=== PATIENT | female | born 1930 | race Caucasian/White ===

== ENCOUNTER 2017-11-06 13:19 | Emergency (ER) | payer MEDICARE, BC ==
[2017-11-06 14:03] LABS: ABS Basophils 0.1 10^3/ul (0-0.2); ABS Eosinophils 0.1 10^3/ul (0-0.6); ABS Lymphocytes 1.3 10^3/ul (1.0-4.8); ABS Monocytes 0.6 10^3/ul (0-0.8); ABS Neutrophils 4.9 10^3/ul (1.5-7.7); ABS Nucleated RBC 0 10^3/ul; Eosinophil % 0.7 % (0-6); Hematocrit 34 % (35-47); Hemoglobin 11.4 g/dl (12.0-16.0); Lymphocyte % 18.8 % (25-47); Mean Corpuscular HGB Conc 34 g/dl (31-36); Mean Corpuscular Hemoglobin 32 pg (27-31); Mean Corpuscular Volume 95 fL (80-97); Mean Platelet Volume 7.2 um3 (7.4-10.4); Nucleated Red Blood Cells % 0; Platelet Count 264 10^3/ul (150-450); Red Blood Count 3.56 10^6/ul (4.0-5.4); Red Cell Distribution Width 14 % (10.5-15)
[2017-11-06 14:04] LABS: Urine Appearance Clear; Urine Blood Negative (Negative); Urine Color Yellow; Urine Ketones Negative (Negative); Urine Protein Negative (Negative); Urine Specific Gravity 1.019 (1.010-1.030); Urine Urobilinogen Negative (Negative)
[2017-11-06 14:26] LABS: EGFR Non-African American 56.2 (>60)
--- NOTE | 2017-11-06 14:43 | RAD ---
Indication: Fall, head injury CT of the brain was performed without IV contrast. Ventricular structures are midline. No midline shift is noted. There is central and cortical atrophy noted. There is no evidence of intracranial mass or hemorrhage. No other high or low density lesions are identified. Periventricular lucency consistent with chronic ischemic White matter change is noted. Overall exam is unchanged from December 23, 2006. IMPRESSION: Chronic ischemic White matter change with no evidence of intracranial mass or hemorrhage.
--- NOTE | 2017-11-06 14:48 | RAD ---
HISTORY: Fall, head trauma COMPARISONS: None TECHNIQUE: Multiple contiguous axial CT scans were obtained of the cervical spine without intravenous contrast, with coronal and sagittal multiplanar reformations. FINDINGS: BRAIN: The visualized brain is unremarkable CENTRAL CANAL: Evaluation of the central canal is limited on CT technique; however, there is no obvious canalicular mass or epidural hemorrhage. ALIGNMENT: There is straightening of the cervical lordosis. VERTEBRAL BODIES: There is multilevel anterolateral marginal osteophyte formation. There is no displaced fracture. JOINTS: There is osteoarthritis of the uncovertebral and facet joints. MUSCULATURE: Unremarkable INTERVERTEBRAL DISCS: There is diffuse loss of intervertebral disc height. AXIAL IMAGES: On axial images, there is mild to moderate bilateral neural foraminal narrowing at C4-C5, C5-C6, and C6-C7. There is no osseous central canal stenosis. SOFT TISSUES: The visualized soft tissues of the neck are unremarkable. The prevertebral fat stripe is preserved. OTHER: None. IMPRESSION: DEGENERATIVE DISC DISEASE AND OSTEOARTHRITIS. NO ACUTE OSSEOUS INJURY TO THE CERVICAL SPINE.
--- NOTE | 2017-11-06 15:25 | RAD ---
HISTORY: Fall COMPARISONS: None VIEWS: 2: Frontal and lateral views of the chest. FINDINGS: CARDIOMEDIASTINAL SILHOUETTE: The cardiomediastinal silhouette is normal. EULALIA: The eulalia are normal. PLEURA: The costophrenic angles are sharp. No pleural abnormalities are noted. LUNG PARENCHYMA: The lungs are clear. ABDOMEN: The upper abdomen is clear. There is no subphrenic gas. BONES AND SOFT TISSUES: There is diffuse osteopenia. Mild degenerative changes are noted. OTHER: None. IMPRESSION: NO ACTIVE CARDIOPULMONARY DISEASE.
--- NOTE | 2017-11-06 15:26 | RAD ---
HISTORY: Fall, chronic low back pain COMPARISONS: April 21, 2017 VIEWS: 4, Frontal view of the pelvis with frontal and frog-leg views of the right hip FINDINGS: BONE DENSITY: There is diffuse osteopenia. BONES: There is no displaced fracture. JOINTS: There is mild osteoarthritis of the hips and SI joints. ALIGNMENT: There is no dislocation. SOFT TISSUES: Unremarkable. OTHER FINDINGS: Degenerative changes are noted of the spine. IMPRESSION: 1. OSTEOPENIA. 2. OSTEOARTHRITIS. 3. NO RADIOGRAPHIC EVIDENCE FOR HIP FRACTURE. X-RAYS MAY BE NEGATIVE WITH NONDISPLACED HIP FRACTURE, IF THERE IS PERSISTENT CLINICAL CONCERN, RECOMMEND CONSIDERATION OF MRI. IN THE SETTING OF CONTRAINDICATION TO MRI OR LIMITATION IN EMERGENT ACCESS TO MRI, CT WOULD BE SUGGESTED.
--- NOTE | 2017-11-06 15:27 | RAD ---
HISTORY: Fall, chronic low back pain COMPARISONS: April 21, 2017 VIEWS: 3 , Frontal, lateral, and coned-down lateral sacral views of the lumbar spine FINDINGS: ALIGNMENT: There is trace anterolisthesis of L4 on L5. There is a scoliotic curvature of the spine. VERTEBRAL BODIES: There is diffuse osteopenia. The vertebral bodies are preserved in height. There is anterolateral marginal osteophyte formation along the lower lumbar spine. JOINTS: There is facet osteoarthritis most pronounced at L4-L5 and L5-S1. INTERVERTEBRAL DISCS: There is diffuse loss of intervertebral disc height. SOFT TISSUE: Unremarkable. OTHER: There is osteoarthritis of the hips IMPRESSION: 1. OSTEOPENIA. 2. SCOLIOSIS. 3. DEGENERATIVE DISC DISEASE AND OSTEOARTHRITIS.
--- NOTE | 2017-11-06 16:46 | ED ---
Jose Moss Elizabeth, scribed for Carlin Quinteros MD on 11/06/17 at 1342 . Complex/Multi-Sys Presentation - HPI Summary HPI Summary: This patient is an 87 year old F BIBA to [facility] with a chief complaint of mechanical fall that occurred this morning at [facility]. The fall was witnessed but the patient notes that she does not remember what caused her to fall. Witnesses reported that she fell forward onto her forehead. The patient reports that she has been unsteady, had not had breakfast and was feeling lousy today. Symptoms aggravated by nothing. Symptoms alleviated by nothing. Patient reports pain in her right hip. Patient denies LOC, dizziness and lightheadedness - History Of Current Complaint Time Seen by Provider: 11/06/17 13:23 Hx Obtained From: Patient, Other: - [facility] staff Onset/Duration: Sudden Onset, Lasting Hours - since earlier today, Still Present Timing: Constant Severity Currently: Mild Severity Initially: Mild Location: Pain At: - right hip Aggravating Factor(s): nothing Alleviating Factor(s): nothing Associated Signs And Symptoms: Positive: Recent Trauma - recent mechanical fall , Other - right hip pain. Negative: SOB, Chest Pain - Allergies/Home Medications Home Medications: Home Medications Calcium Carbonate/Vitamin D3 [Calcium 1000 + D] 1 tab PO DAILY 11/06/17 [ History Confirmed 11/06/17] Cholecalciferol CAP/TAB(NF) [Vitamin D3 CAP/TAB (NF)] 5,000 unit PO DAILY [History Confirmed 11/06/17] Clopidogrel TAB* [Plavix TAB*] 75 mg PO DAILY 11/06/17 [History Confirmed ] Ezetimibe/Simvastat 03/28(NF) [Vytorin 10(NF)] 1 tab PO QPM 11/06/17 [ History Confirmed 11/06/17] Metoprolol Tartrate TAB* [Lopressor TAB*] 50 mg PO DAILY 11/06/17 [History Confirmed 11/06/17] Oxybutynin TAB* [Ditropan TAB*] 15 mg PO DAILY 11/06/17 [History Confirmed 11/06] Pantoprazole TAB (NF) [Protonix TAB (NF)] 40 mg PO DAILY 11/06/17 [History Confirmed 11/06/17] Pramipexole TAB* [Mirapex TAB*] 0.125 mg PO TID 11/06/17 [History Confirmed ] Telmisartan (NF) [Micardis (NF)] 80 mg PO DAILY 11/06/17 [History Confirmed ] PMH/Surg Hx/FS Hx/Imm Hx Musculoskeletal History: Reports: Hx Scoliosis Denies: Hx Rheumatoid Arthritis, Hx Osteoporosis - OSTEOPENIA Neurological History: Denies: Hx Headaches, Other Neuro Impairments/Disorders Infectious Disease History: No Infectious Disease History: Denies: Traveled Outside the [place] in Last 30 Days - Family History Known Family History: Negative: Seizure Disorder, Blood Disorder Review of Systems Negative: Epistaxis Negative: Chest Pain Negative: Vomiting Positive: Other - right hip pain All Other Systems Reviewed And Are Negative: Yes Physical Exam - Summary Physical Exam Summary: VITAL SIGNS: Reviewed. GENERAL: Patient is a well-developed and nourished FEMALE who is lying comfortable in the stretcher. Patient is not in any acute respiratory distress. Patient is demented. HEAD AND FACE: No signs of trauma. No ecchymosis, hematomas or skull depressions. No sinus tenderness. EYES: PERRLA, EOMI x 2, No injected conjunctiva, no nystagmus. EARS: Hearing grossly intact. Ear canals and tympanic membranes are within normal limits. MOUTH: Oropharynx within normal limits. NECK: Supple, trachea is midline, no adenopathy, no JVD, no carotid bruit, no c- spine tenderness, neck with full ROM. CHEST: Symmetric, no tenderness at palpation LUNGS: Clear to auscultation bilaterally. No wheezing or crackles. CVS: Regular rate and rhythm, S1 and S2 present, no murmurs or gallops appreciated. ABDOMEN: Soft, non-tender. No signs of distention. No rebound no guarding, and no masses palpated. Bowel sounds are normal. Paraspinal tenderness in right side of lumbar spine EXTREMITIES: No edema, no cyanosis or clubbing. Decreased ROM in right hip secondary to pain. NEURO: Alert and oriented x 3. No acute neurological deficits. Speech is normal and follows commands. SKIN: Dry and warm Triage Information Reviewed: Yes Vital Signs On Initial Exam: Initial Vitals Temp Pulse Resp BP Pulse Ox 98.9 F 72 18 148/79 95 11/06/17 13:27 11/06/17 13:27 11/06/17 13:27 11/06/17 13:27 11/06/17 13:27 Vital Signs Reviewed: Yes Diagnostics - Vital Signs Vital Signs Temp Pulse Resp BP Pulse Ox 11/06/17 13:27 98.9 F 72 18 148/79 95 - Laboratory Lab Results: Lab Results 11/06/17 11/06/17 11/06/17 Range/Units 13:48 13:52 13:52 WBC 7.0 (3.5-10.8) 10^3/ul RBC 3.56 L (4.0-5.4) 10^6/ul Hgb 11.4 L (12.0-16.0) g/dl Hct 34 L (35-47) % MCV 95 (80-97) fL MCH 32 H (27-31) pg MCHC 34 (31-36) g/dl RDW 14 (10.5-15) % Plt Count 264 (150-450) 10^3/ul MPV 7.2 L (7.4-10.4) um3 Neut % (Auto) 70.6 (38-83) % Lymph % (Auto) 18.8 L (25-47) % [place] % (Auto) 9.0 H (0-7) % Eos % (Auto) 0.7 (0-6) % Baso % (Auto) 0.9 (0-2) % Absolute Neuts (auto) 4.9 (1.5-7.7) 10^3/ul Absolute Lymphs (auto) 1.3 (1.0-4.8) 10^3/ul Absolute Monos (auto) 0.6 (0-0.8) 10^3/ul Absolute Eos (auto) 0.1 (0-0.6) 10^3/ul Absolute Basos (auto) 0.1 (0-0.2) 10^3/ul Absolute Nucleated RBC 0 10^3/ul Nucleated RBC % 0 Sodium 135 L (139-145) mmol/L Potassium 3.9 (3.5-5.0) mmol/L Chloride 100 L (101-111) mmol/L Carbon Dioxide 29 (22-32) mmol/L Anion Gap 6 (2-11) mmol/L BUN 22 (6-24) mg/dL Creatinine 0.94 (0.51-0.95) mg/dL Est GFR ( Amer) 72.3 (>60) Est GFR (Non-Af Amer) 56.2 (>60) BUN/Creatinine Ratio 23.4 H (8-20) Glucose 106 H (70-100) mg/dL Calcium 9.5 (8.6-10.3) mg/dL Total Bilirubin 0.60 (0.2-1.0) mg/dL AST 16 (13-39) U/L ALT 10 (7-52) U/L Alkaline Phosphatase 68 (34-104) U/L Total Creatine Kinase 39 (10-223) U/L Total Protein 7.0 (6.4-8.9) g/dL Albumin 3.7 (3.2-5.2) g/dL Globulin 3.3 (2-4) g/dL Albumin/Globulin Ratio 1.1 (1-3) Urine Color Yellow Urine Appearance Clear Urine pH 5.0 (5-9) Ur Specific [place] 1.019 (1.010-1.030) Urine Protein Negative (Negative) Urine Ketones Negative (Negative) Urine Blood Negative (Negative) Urine Nitrate Negative (Negative) Urine Bilirubin Negative (Negative) Urine Urobilinogen Negative (Negative) Ur Leukocyte Esterase Negative (Negative) Urine Glucose Negative (Negative) Urine Ascorbic Acid * A (Negative) Result Diagrams: 11/06/17 13:52 11/06/17 13:52 Lab Statement: Any lab studies that have been ordered have been reviewed, and results considered in the medical decision making process. - Radiology SP Lumbar AP/Lat 2-3 Views Xray Interpretation: No Acute Changes - IMPRESSION: 1. OSTEOPENIA. 2. SCOLIOSIS. 3. DEGENERATIVE DISC DISEASE AND OSTEOARTHRITIS. Dr. Quinteros has reviewed this report. Radiology Interpretation Completed By: Radiologist CXR Xray Interpretation: No Acute Changes - IMPRESSION: NO ACTIVE CARDIOPULMONARY DISEASE. Dr. Quinteros has reviewed this report. Radiology Interpretation Completed By: Radiologist Right Hip XR Xray Interpretation: No Acute Changes Radiology Interpretation Completed By: Radiologist - CT CT C-Spine CT Interpretation: No Acute Changes - IMPRESSION: DEGENERATIVE DISC DISEASE AND OSTEOARTHRITIS. NO ACUTE OSSEOUS INJURY TO THE CERVICAL SPINE. Dr. Quinteros has reviewed this report. CT Interpretation Completed By: Radiologist CT Brain CT Interpretation: No Acute Changes - IMPRESSION: Chronic ischemic White matter change with no evidence of intracranial mass or hemorrhage. Dr. Quinteros has reviewed this report. CT Interpretation Completed By: Radiologist - EKG 13:46 Cardiac Rate: NL - at 68 BPM EKG Rhythm: Sinus Rhythm EKG Interpretation: Sinus Rhythm with RBBB Complex Multi-Symp Course/Dx Assessment/Plan: This patient is an 87-year-old female with past medical history significant for CVA, dyslipidemia, GERD, hypertension, spinal stenosis, dizziness, presents to the emergency department via ambulance after the patient had a mechanical fall. Patient was complaining of slight for his pain, and right hip pain. Lumbar spine x-ray impression: Osteopenia, scoliosis, degenerative disc disease and osteoarthritis. Right hip and pelvis x-ray impression: Osteopenia, osteoarthritis, no radiographic evidence for hip fracture. Chest x-ray impression: No active cardiopulmonary disease. CT C- spine impression: Degenerative disc disease and also arthritis. No acute osseous injury of the cervical spine. Head CT impression: Chronic ischemic white matter changes with no evidence of intracranial mass or hemorrhage. In the ED course the patient is feeling better. The patient is eating and drinking. The patient was ambulated in the ED and she was able to ambulate without any ataxia or any difficulty. The patient used a walker. Therefore I discussed the findings and test results with the patient and the patients family member and she will be transferred back to the [facility]. She was also advised if the patient continues to have more pain unable to bear weight the patient shell return to the emergency room for further assessment with a CT the scan of the hip. They understand and agree. - Diagnoses Provider Diagnoses: Accidental fall, Hip pain Discharge - Sign-Out/Discharge Documenting (check all that apply): Discharge/Admit/Transfer - Discharge Plan Condition: Stable Disposition: HOME Patient Education Materials: Fall Prevention (ED), Hip Pain (ED) Referrals: Paradise Iverson MD [Primary Care Provider] - 1 Week Additional Instructions: Follow up with primary care physician within 1 week. Return to the emergency department with any new or worsening symptoms. - Billing Disposition and Condition Condition: STABLE Disposition: HOME The documentation as recorded by the Jose nunez Elizabeth accurately reflects the service I personally performed and the decisions made by Aldair bullock Walter, MD.
[2017-11-06 17:11] VITALS: BP 160/90
== END 2017-11-06 17:09 | disposition home or self-care (01) ==
LOC: ED 13:19
DX: M25.551 Pain in right hip (principal); Z91.81 History of falling
CPT/HCPCS: 36415; 70450; 71046; 72100; 72125; 80053; 81003; 82550; 85025; 93005; 99283

== ENCOUNTER 2018-12-22 12:49 | Emergency (ER) | payer MEDICARE, BC ==
[2018-12-22] MEDS ORDERED: NS 0.9% 1000 ML** 1,000 ML IV ONE ×2 (13:41→14:23)
--- OUTSIDE RECORDS SUMMARY | 2018-12-22 13:46 | XMS REPORT | Continuity of Care Document ---
:1930 External Reference #:[id number] Author Name Kishor Muse M.D. Address [address] [place] [address] Care Team Providers Name Role Phone Paradise Iverson M.D. Primary Care Physician Unavailable Payers Date Identification Numbers Payment Provider Subscriber Policy Number: [id number] Medicare - NGS Skyla Guy PayID: [id number] [address] [place] [address] Policy Number: [id number] [place] Plan Skyla Guoanya PayID: [id number] [address] [place] [address] Problems Active Problems Provider Date Multiple sclerosis Onset: Meesman's corneal dystrophy Kishor Muse M.D. Onset: 10/02/2017 Tear film insufficiency Kishor Muse M.D. Onset: 10/02/2017 Presence of intraocular lens Kishor Muse M.D. Onset: 10/02/2017 Retinal drusen Kishor Muse M.D. Onset: 04/14/2018 Other secondary cataract, left eye Kishor Muse M.D. Onset: 04/14/2018 Other optic atrophy, left eye Kishor Muse M.D. Onset: 04/14/2018 Herpes zoster without complication Kishor Muse M.D. 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 ETOH Use Rarely consumes alcohol Tobacco Use Start: Unknown Patient has never smoked Recreational Drug Use Denies Drug Use Smoking Status Reviewed: 12/21/18 Patient has never smoked Allergies, Adverse Reactions, Alerts Active Allergies Reaction Severity Comments Date Codeine 10/02/2017 Medications Active Medications SIG Qnty Indications Ordering Provider Date Ezetimibe-Simvastatin Unknown 10-20mg Tablets Clopidogrel Bisulfate Unknown 75mg Tablets Metoprolol Tartrate Unknown 50mg Tablets Oxybutynin Chloride ER Unknown 15mg Tablets ER 24HR Pantoprazole Sodium Unknown 40mg Tablets DR Pramipexole Unknown Dihydrochloride 0.125mg Tablets Telmisartan Unknown 80mg Tablets Neomycin/Polymyxin/[place] Instill 3 Drops Unknown cortisone (Otic) Into Both Ears 3.5-48999-6 Four Times A Day Suspension Famvir Unknown 500mg Tablets Calcium 1200 Unknown [id number] Chewtabs Ondansetron Unknown 4mg Tablets Dispers History Medications Doxycycline Hyclate take 1 capsule by mouth Unknown - 100mg twice a day for 7 days 04/13/2018 Tablets (Take With Food, DO Not Fluad inject 0.5 milliliter Unknown - 0.5ml Meghna intramuscularly 04/13/2018 Cephalexin take 1 capsule by mouth Unknown - 500mg Capsules four times a day 04/13/2018 Procedures Date Code Description Status 04/14/2018 85336 Est Patient Comprehensive Exam Completed 10/02/2017 16023 Determination Of Refractive State Completed 10/02/2017 02007 New Patient Comprehensive Exam Completed 11/12/2005 94472 Est Patient Comprehensive Exam Completed 11/09/2004 44925 Determination Of Refractive State Completed 11/09/2004 04115 Est Patient Comprehensive Exam Completed Encounters Type Date Location Provider Dx Diagnosis Office Visit 01/29/2005 Kishor Good, 370.20 Superficial 1:45p , zeenat Todd Keratitis Unspec Office Visit 12/18/2004 Kishor Good, 375.15 Dry Eyes ( [place] 12:45p , zeenat Daniel. Syndrome) Plan of Treatment 12/21/2018 - Kishor Muse M.D.B02.9 Zoster without complicationsComments: Smoking can increase the risk of developing or worsening any eye related disease , as well as affect your overall health. If you are a smoker, we strongly recommend that you quit.If you are not a smoker, we strongly recommend that you do not start.Follow up:DENISE RM96.1 Presence of intraocular lensH18.52 Epithelial (juvenile) corneal dystrophy
[2018-12-22] MEDS ORDERED: Ondansetron INJ* 2 MG/ML VIAL IV ONE (13:49)
[2018-12-22] MEDS ORDERED: Fluorescein Sodium TOPICAL* 1 MG TEST STRIP OPHTHALMIC ONE (13:50)
[2018-12-22] MEDS ORDERED: Tetracaine 0.5% OPTH.SOL 4 ML* 1 DROP BTL ONE (13:50)
[2018-12-22 13:52] LABS: ABS Monocytes 0.6 10^3/ul (0-0.8); ABS Neutrophils 6.2 10^3/ul (1.5-7.7); Eosinophil % 0.1 %; Hematocrit 36 % (35-47); Hemoglobin 12.3 g/dL (12.0-16.0); Lymphocyte % 13.1 %; Mean Corpuscular HGB Conc 35 g/dL (31-36); Mean Corpuscular Hemoglobin 33 pg (27-31); Mean Corpuscular Volume 94 fL (80-97); Mean Platelet Volume 7.6 fL (7.4-10.4); Nucleated Red Blood Cells % 0.1; Platelet Count 214 10^3/uL (150-450); Red Blood Count 3.77 10^6 /uL (3.70-4.87); Red Cell Distribution Width 13 % (10-15); White Blood Count 7.9 10^3/uL (3.5-10.8)
--- NOTE | 2018-12-22 13:59 | ED ---
GI/ HPI - HPI Summary HPI Summary: 88-year-old male presents with nausea and vomiting today. States she just diagnoses shingles yesterday. She was seen by an eye doctor yesterday and they said she has no eye involvement. She states that today she started vomiting. She states that she's not had any diarrhea. No abdominal pain. No chest pain shortness of breath. Has headache about a 7 out of 10. Not worse headache of life. She admits to some blurry vision. She has more swelling noted to her forehead. She states that nausea has been going about a week but did not start vomiting till today. She did have some diarrhea last week. She has been taking Zofran without relief. States she's not had a bowel movement a couple days. Has a history of an appendectomy. - History of Current Complaint Chief Complaint: EDNauseaVomitDiarrh Time Seen by Provider: 12/22/18 13:32 Stated Complaint: HEADACHE,NAUSEA PER EMS Pain Intensity: 0 - Allergy/Home Medications Allergies/Adverse Reactions: Allergies Allergy/AdvReac Type Severity Reaction Status Date / Time codeine Allergy Difficulty Verified 12/22/18 13:25 Breathing/Wheezing PMH/Surg Hx/FS Hx/Imm Hx Musculoskeletal History: Reports: Hx Scoliosis Denies: Hx Rheumatoid Arthritis, Hx Osteoporosis - OSTEOPENIA Neurological History: Denies: Hx Headaches, Other Neuro Impairments/Disorders Infectious Disease History: Yes Infectious Disease History: Denies: Traveled Outside the [place] in Last 30 Days - Family History Known Family History: Negative: Seizure Disorder, Blood Disorder - Social History Alcohol Use: None Substance Use Type: Reports: None Smoking Status (MU): Never Smoked Tobacco Review of Systems Negative: Fever Negative: Chest Pain Negative: Shortness Of Breath Positive: Vomiting, Nausea. Negative: Abdominal Pain All Other Systems Reviewed And Are Negative: Yes Physical Exam Triage Information Reviewed: Yes Vital Signs On Initial Exam: Initial Vitals Temp Pulse Resp BP Pulse Ox 99.5 F 57 16 187/76 94 12/22/18 13:19 12/22/18 13:19 12/22/18 13:19 12/22/18 13:19 12/22/18 13:19 Vital Signs Reviewed: Yes Appearance: Positive: Well-Appearing Skin: Positive: Warm, Dry, Other - shingles rash to right side of face Head/Face: Positive: Other - shingles to right side of face Eyes: Positive: EOMI, MIRYAM, Other: - swelling to right eyelid Respiratory/Lung Sounds: Positive: Clear to Auscultation, Breath Sounds Present Cardiovascular: Positive: Normal, RRR Abdomen Description: Positive: Nontender, Soft Bowel Sounds: Positive: Present Musculoskeletal: Positive: Normal Neurological: Positive: Normal Psychiatric: Positive: Normal Procedures - Eye Procedure Right Alcaine Drops Administered: Yes - no dendritic lesion on fluroscein exam Diagnostics - Vital Signs Vital Signs Temp Pulse Resp BP Pulse Ox 12/22/18 13:19 99.5 F 57 16 187/76 94 - Laboratory Lab Results: Lab Results 12/22/18 Range/Units 13:44 WBC 7.9 (3.5-10.8) 10^3/uL RBC 3.77 (3.70-4.87) 10^6 /uL Hgb 12.3 (12.0-16.0) g/dL Hct 36 (35-47) % MCV 94 (80-97) fL MCH 33 H (27-31) pg MCHC 35 (31-36) g/dL RDW 13 (10-15) % Plt Count 214 (150-450) 10^3/uL MPV 7.6 (7.4-10.4) fL Neut % (Auto) 79.0 % Lymph % (Auto) 13.1 % [place] % (Auto) 7.2 % Eos % (Auto) 0.1 % Baso % (Auto) 0.6 % Absolute Neuts (auto) 6.2 (1.5-7.7) 10^3/ul Absolute Lymphs (auto) 1.0 (1.0-4.8) 10^3/ul Absolute Monos (auto) 0.6 (0-0.8) 10^3/ul Absolute Eos (auto) 0.0 (0-0.6) 10^3/ul Absolute Basos (auto) 0.0 (0-0.2) 10^3/ul Absolute Nucleated RBC 0.0 10^3/ul Nucleated RBC % 0.1 Result Diagrams: 12/22/18 13:44 12/22/18 13:44 Lab Statement: Any lab studies that have been ordered have been reviewed, and results considered in the medical decision making process. - CT abd CT Interpretation Completed By: Radiologist Summary of CT Findings: IMPRESSION: MODERATE GASTRIC DISTENTION WITHOUT EVIDENCE FOR OBSTRUCTION. Re-Evaluation - Re-Evaluation First Eval Re-Evaluation Time: 14:50 Comment: less nauseous Second Eval Re-Evaluation Time: 17:42 Change: Improved Comment: able to tolerate crackers and meds without nausea GIGU Course/Dx - Course Course Of Treatment: 88-year-old male presents with nausea and vomiting today. States she just diagnoses shingles yesterday. She was seen by an eye doctor yesterday and they said she has no eye involvement. She states that today she started vomiting. She states that she's not had any diarrhea. No abdominal pain. No chest pain shortness of breath. Has headache about a 7 out of 10. Not worse headache of life. She admits to some blurry vision. She has more swelling noted to her forehead. She states that nausea has been going about a week but did not start vomiting till today. She did have some diarrhea last week. She has been taking Zofran without relief. States she's not had a bowel movement a couple days. Has a history of an appendectomy. On exam shingles noted to right side of forehead. Normal neuro exam. Nontender abdomen. no dendritic lesion of right eye with fluroscein exam. wbc normal. gave fluids and zofran and tolerated a po challenge. gave clondine as blood pressure is high. CT shows gastric distention. told follow up with primary. patient understand and agrees with plan. - Diagnoses Differential Diagnoses - Female: Bowel Obstruction, Gastroenteritis (Viral), Gastroenteritis (Bacterial), Urinary Tract Infection Provider Diagnoses: Vomiting, Shingles Discharge - Sign-Out/Discharge Documenting (check all that apply): Patient Departure Patient Received Moderate/Deep Sedation with Procedure: No - Discharge Plan Condition: Good Disposition: HOME Prescriptions: Ondansetron ODT TAB* [Zofran 4 MG Odt TAB*] 4 mg PO Q6H PRN #20 tab.odt PRN Reason: Nausea Patient Education Materials: Acute Nausea and Vomiting (ED) Referrals: Paradise Iverson MD [Primary Care Provider] - Additional Instructions: Can take up two tablets Zofran every 6 hours as needed for nausea Drink small amounts of fluid as tolerated When able to eat follow BRAT diet: Bananas, rice, applesauce, toast Take Tylenol for pain as needed every 6 hours Follow up with primary within 5 days, may need GI in future follow up with optho Return to ED if develop any new or worsening symptoms - Billing Disposition and Condition Condition: GOOD Disposition: Home
[2018-12-22 14:15] LABS: ALT 9 U/L (7-52); AST 16 U/L (13-39); Albumin 3.8 g/dL (3.2-5.2); Albumin/Globulin Ratio 1.1 (1-3); Alkaline Phosphatase 81 U/L (34-104); Anion Gap 7 mmol/L (2-11); BUN/Creatinine Ratio 20.8 (8-20); Blood Urea Nitrogen 20 mg/dL (6-24); C Reactive Protein 9.39 mg/L (<8.01); CO2 Carbon Dioxide 27 mmol/L (22-32); Calcium 9.5 mg/dL (8.6-10.3); Chloride 100 mmol/L (101-111); EGFR African American 66.2 (>60); EGFR Non-African American 54.7 (>60); Globulin 3.5 g/dL (2-4); Glucose 115 mg/dL (70-100); Potassium 4.1 mmol/L (3.5-5.0); Sodium 134 mmol/L (135-145); Total Protein 7.3 g/dL (6.4-8.9)
[2018-12-22] MEDS ORDERED: Acetaminophen TAB* 325 MG PO ONE (14:50)
[2018-12-22] MEDS ORDERED: Iodixanol* (CONTRAST) 320 MG/ML 100 ML SDV IV ONE (15:32)
[2018-12-22] MEDS ORDERED: cloNIDine TAB* 0.1 MG PO ONE (17:09)
[2018-12-22 18:44] VITALS: BP 161/74
== END 2018-12-22 18:42 | disposition home or self-care (01) ==
LOC: ED 12:49
DX: R11.10 Vomiting, unspecified (principal); B02.9 Zoster without complications; Z88.5 Allergy status to narcotic agent; M41.9 Scoliosis, unspecified
CPT/HCPCS: 36415; 74177; 80053; 83605; 83690; 83880; 85025; 86140; 96361; 96374; 99285; A9270-GY; J2405; Q9967